=== PATIENT | male | born 1955 | race Caucasian/White ===

== ENCOUNTER → 2018-08-17 08:22 | Outpatient (CLI) | payer BC, SELFPAY ==
[2018-08-17 09:50] LABS: Alanine Aminotransferase 27 U/L (12-78); Albumin Level 3.8 gm/dL (3.4-5.0); Alkaline Phosphatase 64 U/L (46-116); Anion Gap -7.3 mEq/L (5-15); Bilirubin,Total 0.4 mg/dL (0.2-1.0); Blood Urea Nitrogen 17 mg/dL (7-18); Calcium 8.4 mg/dL (8.5-10.1); Carbon Dioxide 29 mmol/L (21.0-32.0); Chloride 102 mmol/L (98-107); Chol/HDL Ratio 2.8 (1-3.5); Cholesterol 171 mg/dL (140-200); Creatinine,Serum 1.17 mg/dL (0.70-1.30); Estimated Glomerular Filt Rate 63 ml/min (>60); GFR (African American) 77 ML/MIN (>60); Globulin 3.7 gm/dl (1.3-3.2); Glucose 100 mg/dL (74-106); HDL Cholesterol 62 mg/dL (27-67); LDL Cholesterol 96 mg/dL (0-130); Prostate Specific Ag Screen 1.3 ng/mL (0.0-4.0); Sodium 120 mmol/L (136-145); Total Protein,Serum 7.5 gm/dL (6.4-8.2); Triglycerides 63 mg/dL (30-200); VLDL Cholesterol 13 mg/dL (0-40)
[2018-08-17 09:54] LABS: Aspartate Amino Transferase 18 U/L (15-37); Potassium 3.7 mmoL/L (3.5-5.1)
== END ==
PROVIDERS: PCP Family Medicine; Visit Provider Family Medicine
DX: I10 Essential (primary) hypertension (principal); E78.5 Hyperlipidemia, unspecified; Z12.5 Encounter for screening for malignant neoplasm of prostate
CPT/HCPCS: 36415; 80053; 80061; G0103

== ENCOUNTER → 2020-04-25 12:06 | Outpatient (CLI) | payer OTHER, MEDICAID, SELFPAY ==
--- NOTE | 2020-04-25 12:21 | XR_ITS ---
PROCEDURE: XR HIP LT 2-3V W/PELVIS CLINICAL INDICATION: LT HIP PAIN COMPARISON: No exams were available for comparison FINDINGS: No fracture or dislocation is evident. No significant degenerative change. No lytic or blastic change. Unremarkable soft tissues. IMPRESSION: Negative left hip Dictated by: Devon Ruelas MD 04/25/2020 13:46 Electronically signed by Devon Ruelas MD in [place] 04/25/2020 13:46
--- NOTE | 2020-04-25 12:22 | XR_ITS ---
PROCEDURE: XR KNEE LT 3V CLINICAL INDICATION: LT KNEE PAIN COMPARISON: KNEE3L KNEE-3 VIEWS-LT from 08/13/2016 FINDINGS: No fracture or dislocation. No lytic or blastic change. There is normal mineralization. The joint spaces are well-preserved. No significant degenerative/arthritic changes. No erosive changes evident. Other findings:There is some smooth cortical thickening of the distal shaft of the femur anteriorly which could be due to an old injury. IMPRESSION: 1. Negative knee. 2. Mild cortical thickening distal shaft of the femur anteriorly Dictated by: Devon Ruelas MD 04/25/2020 13:45 Electronically signed by Devon Ruelas MD in [place] 04/25/2020 13:45
== END ==
PROVIDERS: PCP Family Medicine; Visit Provider Family Medicine
DX: M25.552 Pain in left hip (principal); M25.562 Pain in left knee
CPT/HCPCS: 73502; 73562

== ENCOUNTER → 2020-10-09 14:29 | Outpatient (CLI) | payer OTHER, SELFPAY ==
--- NOTE | 2020-10-09 14:40 | XR_ITS ---
PROCEDURE: XR WRIST RT MIN 3V CLINICAL INDICATION: RT WRIST PAIN COMPARISON: No exams were available for comparison FINDINGS: No fracture or dislocation. No lytic or blastic change. There is normal mineralization. Osteoarthritic changes are present at the distal radial ulnar joint with some mild osteosclerosis and osteophyte formation. Other findings:None. IMPRESSION: Mild osteoarthritis of the DRUJ Dictated by: Devon Ruelas MD 10/09/2020 15:02 Devon Ruelas MD in [place] 10/09/2020 15:02
--- NOTE | 2020-10-09 14:40 | XR_ITS ---
PROCEDURE: XR KNEE RT 3V CLINICAL INDICATION: RT KNEE PAIN COMPARISON: CR KNEE3L KNEE-3 VIEWS-LT from 08/13/2016 CR XR KNEE LT 3V from 04/25/2020 FINDINGS: No fracture or dislocation. No lytic or blastic change. There is normal mineralization. The joint spaces are well-preserved. No significant degenerative/arthritic changes. No erosive changes evident. Other findings:None. IMPRESSION: No acute findings. Dictated by: Devon Ruelas MD 10/09/2020 15:12 Dveon Ruelas MD in [place] 10/09/2020 15:12
== END ==
PROVIDERS: PCP Family Medicine; Visit Provider Family Medicine
DX: S69.91XA Unspecified injury of right wrist, hand and finger(s), initial encounter (principal); S89.91XA Unspecified injury of right lower leg, initial encounter
CPT/HCPCS: 73110; 73562

== ENCOUNTER → 2021-06-16 13:21 | Outpatient (CLI) | payer OTHER, SELFPAY ==
--- NOTE | 2021-06-16 13:29 | XR_ITS ---
PROCEDURE INFORMATION: Exam: XR Lumbosacral Spine Exam date and time: 06/16/2021 1:29 PM Age: 65 years old Clinical indication: Low back pain; Additional info: Lower back pain TECHNIQUE: Imaging protocol: XR of the lumbosacral spine. Views: 4 or 5 views. COMPARISON: CR XR HIP LT 2-3V W/PELVIS 04/25/2020 12:36 PM FINDINGS: Bones/joints: Mild disc space narrowing sclerosis and osteophytosis is seen from L2 through S1 with most severe changes at L5-S1. Mild posterior spurring is seen. Associated moderate to severe facet joint arthropathy from L4 through S1 is seen. The combination of these changes causes significant lower lumbar spinal stenosis. Associated neural foraminal stenosis at these levels is also seen. Sacroiliac joints are unremarkable as visualized. Soft tissues: Unremarkable. IMPRESSION: Multilevel degenerative changes for which follow-up MRI scan could be obtained if clinically indicated.
== END ==
PROVIDERS: PCP Family Medicine; Visit Provider Family Medicine
DX: M54.5 Low back pain (principal)
CPT/HCPCS: 72110

== ENCOUNTER → 2022-06-28 08:31 | Outpatient (CLI) | payer MEDICARE, OTHER, SELFPAY ==
[2022-06-28 10:31] LABS: Alanine Aminotransferase 27 U/L (12-78); Albumin Level 3.9 g/dl (3.5-5.0); Albumin/Globulin Ratio 1.4 (1.1-1.8); Alkaline Phosphatase 75 U/L (38-126); Anion Gap 10.5 mEq/L (5-15); Aspartate Amino Transferase 27 U/L (17-59); Bilirubin,Total 0.3 mg/dl (0.2-1.3); Blood Urea Nitrogen 19 mg/dl (9-20); Calcium 8.8 mg/dl (8.4-10.2); Carbon Dioxide 33 mmol/L (22.0-30.0); Chloride 100 mmol/L (98-107); Chol/HDL Ratio 3.7 (1-3.5); Cholesterol 185 mg/dl (140-200); Estimated Glomerular Filt Rate 55 ml/min (>60); GFR (African American) 67 ML/MIN (>60); Globulin 2.8 g/dL (1.3-3.2); Glucose 97 mg/dl (74-100); HDL Cholesterol 50 mg/dl (40-60); Potassium 3.5 mmoL/L (3.5-5.1); Sodium 140 mmol/L (136-145); Total Protein,Serum 6.7 g/dl (6.3-8.2); Triglycerides 88 mg/dl (30-150); VLDL Cholesterol 18 mg/dL (0-40)
[2022-06-28 10:43] LABS: Direct LDL Cholesterol 105.34 mg/dL (100-129)
[2022-06-28 11:02] LABS: Prostate Specific Ag Screen 3.4 ng/ml (0.0-4.0)
== END ==
PROVIDERS: PCP Family Medicine; Visit Provider Family Medicine
DX: I10 Essential (primary) hypertension (principal); E78.5 Hyperlipidemia, unspecified; Z12.5 Encounter for screening for malignant neoplasm of prostate
CPT/HCPCS: 36415; 80053; 80061; G0103

== ENCOUNTER 2023-03-17 18:10 | Emergency (ER) | payer MEDICARE, OTHER, SELFPAY ==
[2023-03-17 18:10] VITALS: BP 0/0; PULSE 0; RESP 0; TEMP -17.7; TEMP 0; O2SAT 0; BMI 29.5
--- NOTE | 2023-03-17 19:16 | PC.NURSE ---
pt refusing to have any one to touch him and not allowing any assessment or vital signs to be obtained.
--- NOTE | 2023-03-17 19:25 | PC.NURSE ---
patient yelling in conference room re: no one coming at him or touching him . Patient is adamant that for staff to do so would be a violation of his 4th/5th amendment rights and that no one is 'f-ing' touching him/and warning staff that walk past his room that this hospital would be facing a lawsuit.
--- NOTE | 2023-03-17 19:45 | PC.NURSE ---
Patient continues to refuse care. Arguing with officers at bedside. officers state that they need a medical clearance from the md for [facility].
--- NOTE | 2023-03-17 20:19 | PC.NURSE ---
Patient awake, alert, identifies self. Demands to know why he is here and what [facility] is holding him for. Advised him [facility] would be taking care of that, that we just need to know if he wants us to do anything for him or feels like he needs seen. MD at bedside attempting to reason with patient. Patient refuses and adamantly stated none of them are gonna touch me .
--- NOTE | 2023-03-17 20:31 | PC.NURSE ---
patient yelling and arguing with [facility] that he knows who he is and where he is and we are violating his 4th and 5th amendment rights and that they (hospital staff) are not fucking touching me . patient's daughter comes out of room where she is located with the patients spouse (room 11) offering to try to calm down her father but she was asked by [facility] and staff to return to the room she is in. Daughter agreed as patient continues to yell about anyone coming near me .
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
--- NOTE | 2023-03-17 20:40 | PC.NURSE ---
[facility] at bedside. Patient continues to yell at staff and [facility] that i know my 4th and 5th amendment rights and you are not fucking touching me .
[2023-03-17 20:41] VITALS: BP 0/0; PULSE 0; RESP 0; TEMP -17.7; TEMP 0; O2SAT 0
== END 2023-03-17 20:52 ==
PROVIDERS: Emergency Provider Emergency Medicine
DX: F10.929 Alcohol use, unspecified with intoxication, unspecified (principal); F17.200 Nicotine dependence, unspecified, uncomplicated
CPT/HCPCS: 99281; 99282

== ENCOUNTER 2023-03-18 19:06 | Emergency (ER) | payer MEDICARE, MEDICAID, SELFPAY ==
[2023-03-18 19:07] VITALS: BP 211/145; PULSE 90; RESP 16; TEMP 36.8; O2SAT 98; BMI 39.4
--- NOTE | 2023-03-18 19:15 | PC.NURSE ---
1915 warm blankets provided at this time. pt remains a GCS of 15 at this it with a patient airway.
[2023-03-18 19:30] LABS: Basophils # 0.1 K/mm3 (0-0.2); Basophils % 0.5 % (0.1-2.0); Eosinophils # 0.1 K/mm3 (0.0-0.4); Eosinophils % 1.2 % (0.1-12.0); Hemoglobin 15.6 g/dL (14.1-18.0); Lymphocytes # 3.2 K/mm3 (0.7-4.5); Lymphocytes % 27.3 % (10-50); Mean Corpuscular HGB Conc 33.2 g/dL (31.8-35.4); Mean Corpuscular Hemoglobin 33.5 pg (27.0-31.2); Mean Corpuscular Volume 100.8 fl (80-94); Monocytes # 0.7 K/mm3 (0.1-1.0); Monocytes % 6.3 % (1.7-9.3); Neutrophils # 7.5 K/mm3 (1.8-7.8); Neutrophils % 64.7 % (37.0-80.0); Platelet Count 182 K/mm3 (142-424); Red Blood Count 4.66 M/mm3 (4.60-6.20); Red Cell Distribution Width 13.6 % (11.5-17.5); White Blood Count 11.6 K/mm3 (4.8-10.8)
[2023-03-18 19:40] LABS: Alanine Aminotransferase 30 U/L (12-78); Albumin Level 4.7 g/dl (3.5-5.0); Albumin/Globulin Ratio 1.4 (1.1-1.8); Alkaline Phosphatase 76 U/L (38-126); Anion Gap 17.9 mEq/L (5-15); Aspartate Amino Transferase 47 U/L (17-59); Bilirubin,Total 0.8 mg/dl (0.2-1.3); Blood Urea Nitrogen 15 mg/dl (9-20); Calcium 8.9 mg/dl (8.4-10.2); Carbon Dioxide 21 mmol/L (22.0-30.0); Chloride 102 mmol/L (98-107); Creatinine Clearance Estimated 99 mL/min (50-200); Estimated Glomerular Filt Rate 55 ml/min (>60); GFR (African American) 67 ML/MIN (>60); Globulin 3.3 g/dL (1.3-3.2); Glucose 146 mg/dl (74-100); Potassium 3.9 mmoL/L (3.5-5.1); Sodium 137 mmol/L (136-145)
--- NOTE | 2023-03-18 19:45 | PC.NURSE ---
Called [facility] they will call us back at this time
--- NOTE | 2023-03-18 19:59 | PC.NURSE ---
1900 weather check with [employer]
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
--- NOTE | 2023-03-18 20:08 | PC.NURSE ---
ED doctor on phone with [facility]
--- NOTE | 2023-03-18 20:23 | PC.NURSE ---
[employer] contacted awaiting return call
[2023-03-18 20:35] LABS: Ethyl Alcohol 11 mg/dl (0-10)
--- NOTE | 2023-03-18 20:37 | PC.NURSE ---
waiting for weather check from [employer]
[2023-03-18 20:40] LABS: Microscopic, Urine URINE MICROSCOPIC (MICROSCOPIC)
[2023-03-18 20:49] LABS: Appearance,Urine CLEAR (Clear); Bilirubin,Urine Negative (Negative); Blood, Urine Negative (Negative); Color,Urine YELLOW (Yellow); Glucose,Urine (UA) Negative (Negative); Ketones,Urine Negative (Negative); Leukocyte Esterase,Urine Negative (Negative); Nitrate,Urine Negative (Negative); Protein,Urine Negative (Negative); Specific Gravity, Urine 1.015 (1.005-1.030); Urobilinogen,Urine 0.2 EU/dl (0.2)
[2023-03-18 21:02] LABS: Benzodiazepines Screen,Urine Negative ng/ml (<200)
[2023-03-18 21:03] LABS: Amphetamine/Metha Screen,Urine Negative ng/ml (<1000)
[2023-03-18 21:04] LABS: Barbiturates Screen,Urine Negative ng/ml (<200); Cannabinoid Screen,Urine Negative ng/ml (<50)
[2023-03-18 21:05] LABS: Cocaine Screen,Urine Negative ng/ml (<300); Fine Granular Casts,Urine Occasional #/lpf (0); Methadone Screen,Urine Negative ng/ml (<300); Squamous Epithelial Cell,Urine Occasional #/hpf (0-5)
[2023-03-18 21:06] LABS: Opiate Screen,Urine Positive ng/ml (<300)
[2023-03-18 21:09] LABS: Phencyclidine Screen,Urine Negative ng/ml (<25)
[2023-03-18 21:40] VITALS: BP 178/100; PULSE 86; RESP 16; TEMP 36.8; O2SAT 98
== END 2023-03-18 21:42 | disposition short-term general hospital (02) ==
PROVIDERS: Emergency Provider Emergency Medicine; PCP Family Medicine
DX: T23.001A Burn of unspecified degree of right hand, unspecified site, initial encounter (principal); T23.002A Burn of unspecified degree of left hand, unspecified site, initial encounter; T20.07XA Burn of unspecified degree of neck, initial encounter; F17.200 Nicotine dependence, unspecified, uncomplicated; X08.8XXA Exposure to other specified smoke, fire and flames, initial encounter
CPT/HCPCS: 80053; 80305; 81001; 85025; 90714; 96360; 96372; 96374; 99291; C9803; U0003; U0005

== ENCOUNTER 2025-03-02 11:57 | Outpatient (CLI) | payer MEDICARE, OTHER, SELFPAY ==
[2025-03-02 13:03] LABS: Alanine Aminotransferase 21 U/L (12-78); Albumin Level 4.2 g/dl (3.5-5.0); Albumin/Globulin Ratio 1.4 (1.1-1.8); Alkaline Phosphatase 51 U/L (38-126); Anion Gap 13.4 mEq/L (5-15); Aspartate Amino Transferase 35 U/L (17-59); Bilirubin,Total 1.2 mg/dl (0.2-1.3); Blood Urea Nitrogen 16 mg/dl (9-20); Calcium 9.3 mg/dl (8.4-10.2); Carbon Dioxide 26 mmol/L (22.0-30.0); Chloride 104 mmol/L (98-107); Chol/HDL Ratio 2.4 (1-3.5); Cholesterol 165 mg/dl (140-200); Estimated Glomerular Filt Rate 67 ml/min (>60); GFR (African American) 81 ML/MIN (>60); Globulin 3.1 g/dL (1.3-3.2); Glucose 98 mg/dl (74-100); HDL Cholesterol 69 mg/dl (40-60); Potassium 4.4 mmoL/L (3.5-5.1); Sodium 139 mmol/L (136-145); Total Protein,Serum 7.3 g/dl (6.3-8.2); Triglycerides 67 mg/dl (30-150); VLDL Cholesterol 13 mg/dL (0-40)
[2025-03-02 13:14] LABS: Direct LDL Cholesterol 88.42 mg/dL (100-129)
[2025-03-02 14:11] LABS: Prostate Specific Ag Screen 2.1 ng/ml (0.0-4.0)
== END 2025-03-02 23:59 | disposition home or self-care (01) ==
LOC: LAB 11:59
PROVIDERS: PCP Family Medicine; Visit Provider Family Medicine
DX: Z12.5 Encounter for screening for malignant neoplasm of prostate (principal); I10 Essential (primary) hypertension; E78.5 Hyperlipidemia, unspecified
CPT/HCPCS: 36415; 80053; 80061; G0103